=== PATIENT | male | born 1965 | race Caucasian/White ===

== ENCOUNTER 2017-07-12 18:24 | Observation (INO) | END 2017-07-16 14:30 | disposition home or self-care (01) ==

== ENCOUNTER 2018-09-24 09:42 | Emergency (ER) | payer OTHER ==
[~2018-09-24] VITALS: Ht 154.9 cm; Wt 71.5 kg
[~2018-09-24 09:42] MED LIST: ASPI-903 PO; ATOR20TA38 PO; ATOR20TA65 PO; BENA10TA4 PO; CIPR500T4 PO; GLIP10TA14 PO; IBUP-1542 PO; LANT3I SC; LEVO500T48 PO; METF100010 PO; METO-448 PO; METR500T PO; MTF1000T PO; ONDA4TAB14 PO
[2018-09-24 09:45] VITALS: Ht 154.9 cm; Wt 71.5 kg
[2018-09-24] MEDS ORDERED: KETOROLAC 30 MG INJ IV STA (09:52)
[2018-09-24] MEDS ORDERED: SOD CHLORIDE 0.9% 1,000 ML IV STA (09:52)
[2018-09-24] MEDS ORDERED: ONDANSETRON 4 MG INJ IV STA (09:52)
[2018-09-24] MEDS ORDERED: metroNIDAZOLE 500 MG TAB PO ONE (11:00)
[2018-09-24] MEDS ORDERED: CIPROFLOXACIN 500 MG TAB PO ONE (11:00)
--- NOTE | 2018-09-24 11:35 | ERD ---
ER Documentation Chief Complaint Chief Complaint ABD PAIN, NO APPETITE X3 DAYS, SENT PER PMD FOR EVAL, NO N/V HPI Patient is a 53-year-old male with hypertension and diabetes who presents with abdominal pain. The patient has had decreased intake by mouth as well. He has had no vomiting but has had diarrhea. He has had the symptoms for the past 2 days. He tried Advil and Tylenol. He has no fevers. He was sent by his primary doctor Dr. Rodriguez for work-up. Upon review of old medical records patient one previous visit to the ER in June 2017. ROS All systems reviewed and are negative except as per history of present illness. Medications Home Meds Active Scripts Metronidazole* (Flagyl*) 500 Mg Tablet, 500 MG PO TID for 7 Days, TAB Prov:NANCY TONG MD 09/24/18 Ciprofloxacin Hcl* (Ciprofloxacin Hcl*) 500 Mg Tablet, 500 MG PO BID for 7 Days, TAB Prov:NANCY TONG MD 09/24/18 Ondansetron (Ondansetron Odt) 4 Mg Tab.rapdis, 4 MG PO Q6H PRN for NAUSEA AND/OR VOMITING, #10 TAB Prov:NANCY TONG MD 09/24/18 Ibuprofen* (Motrin*) 600 Mg Tab, 600 MG PO Q6H PRN for PAIN AND OR ELEVATED TEMP, #30 TAB Prov:NANCY TONG MD 09/24/18 Reported Medications Aspirin* (Aspirin* Chew) 81 Mg Tab.chew, 81 MG PO DAILY, TAB.CHEW 09/24/18 Metoprolol Tartrate* (Lopressor*) 25 Mg Tab, 25 MG PO BID, #60 TAB 09/24/18 Metformin Hcl* (Metformin Hcl*) 1,000 Mg Tablet, 1000 MG PO BID WITH MEALS, #30 TAB 09/24/18 Insulin Glargine* (Lantus*) 100 Unit/Ml Soln, 20 UNIT SC QHS, #1 VIAL 09/24/18 Glipizide* (Glipizide*) 10 Mg Tablet, 10 MG PO BID, TAB 09/24/18 Benazepril Hcl* (Benazepril Hcl*) 10 Mg Tablet, 10 MG PO DAILY, #30 TAB 09/24/18 Atorvastatin Calcium* (Atorvastatin Calcium*) 20 Mg Tablet, 20 MG PO QHS, #30 TAB 09/24/18 Discontinued Reported Medications Metformin* (Glucophage*) 1,000 Mg Tablet, 1000 MG PO BID, #60 TAB 07/13/17 Glipizide* (Glipizide*) 10 Mg Tablet, 10 MG PO BID, TAB 07/13/17 Discontinued Scripts Levofloxacin* (Levaquin*) 500 Mg Tablet, 500 MG PO DAILY for 7 Days, TAB Prov:KARUNAARINANAUNHILDA 07/16/17 Metoprolol Tartrate* (Lopressor*) 25 Mg Tab, 25 MG PO BID for 30 Days, TAB Prov:ALICIAHILDA 07/16/17 Insulin Glargine* (Lantus*) 100 Unit/Ml Soln, 15 UNIT SC DAILY@20 for 30 Days Prov:KARUNAGERARDHILDA 07/16/17 Benazepril Hcl* (Benazepril Hcl*) 10 Mg Tablet, 10 MG PO BID for 30 Days, TAB Prov:ALICIAHILDA 07/16/17 Atorvastatin Calcium (Atorvastatin Calcium) 20 Mg Tablet, 20 MG PO HS for 30 Days, TAB Prov:ALICIAHILDA 07/16/17 Allergies Allergies: Coded Allergies: No Known Allergy (Unverified , 09/24/18) PMhx/Soc History of Surgery: Yes Anesthesia Reaction: No Hx Neurological Disorder: No Hx Respiratory Disorders: No Hx Cardiac Disorders: No Hx Psychiatric Problems: No Hx Miscellaneous Medical Probl: No Hx Alcohol Use: Yes Hx Substance Use: No Hx Tobacco Use: No Smoking Status: Never smoker FmHx Family History: diabetes Physical Exam Vitals Vital Signs Date Temp Pulse Resp B/P (MAP) Pulse Ox O2 O2 Flow FiO2 Time Delivery Rate 09/24/18 98.2 98 20 119/76 97 Room Air 11:46 (90) 09/24/18 88 14 132/85 99 Room Air 10:30 (101) 09/24/18 98.7 108 16 145/88 98 09:45 (107) Physical Exam Const: No acute distress Head: Atraumatic Eyes: Normal Conjunctiva ENT: Normal External Ears, Nose and Mouth. Neck: Full range of motion. No meningismus. Resp: Clear to auscultation bilaterally Cardio: Regular rate and rhythm, no murmurs Abd: Soft, crampy tenderness to palpation diffusely without rebound or guarding Skin: No petechiae or rashes Back: No midline or flank tenderness Ext: No cyanosis, or edema Neur: Awake and alert Psych: Normal Mood and Affect Result Diagram: 09/24/18 1012 09/24/18 1012 Results 24 hrs Laboratory Tests Test 09/24/18 10:12 White Blood Count 12.5 10^3/ul Red Blood Count 4.97 10^6/ul Hemoglobin 15.1 g/dl Hematocrit 44.2 % Mean Corpuscular Volume 88.9 fl Mean Corpuscular Hemoglobin 30.4 pg Mean Corpuscular Hemoglobin Concent 34.2 g/dl Red Cell Distribution Width 12.0 % Platelet Count 201 10^3/UL Mean Platelet Volume 11.2 fl Immature Granulocytes % 0.600 % Neutrophils % 72.8 % Lymphocytes % 12.9 % Monocytes % 13.2 % Eosinophils % 0.1 % Basophils % 0.4 % Nucleated Red Blood Cells % 0.0 /100WBC Immature Granulocytes # 0.080 10^3/ul Neutrophils # 9.1 10^3/ul Lymphocytes # 1.6 10^3/ul Monocytes # 1.6 10^3/ul Eosinophils # 0.0 10^3/ul Basophils # 0.1 10^3/ul Nucleated Red Blood Cells # 0.0 10^3/ul Urine Color YELLOW Urine Clarity CLEAR Urine pH 6.0 Urine Specific [place] 1.004 Urine Ketones TRACE mg/dL Urine Nitrite NEGATIVE mg/dL Urine Bilirubin NEGATIVE mg/dL Urine Urobilinogen NEGATIVE mg/dL Urine Leukocyte Esterase NEGATIVE [place]/ul Urine Microscopic RBC 0 /HPF Urine Microscopic WBC 0 /HPF Urine Hemoglobin 1+ mg/dL Urine Glucose NEGATIVE mg/dL Urine Total Protein NEGATIVE mg/dl Sodium Level 135 mmol/L Potassium Level 4.2 mmol/L Chloride Level 98 mmol/L Carbon Dioxide Level 27 mmol/L Anion Gap 10 Blood Urea Nitrogen 12 mg/dl Creatinine 0.87 mg/dl Est Glomerular Filtrat Rate mL/min > 60 mL/min Glucose Level 159 mg/dl Calcium Level 9.3 mg/dl Total Bilirubin 0.8 mg/dl Direct Bilirubin 0.00 mg/dl Indirect Bilirubin 0.8 mg/dl Aspartate Amino Transf (AST/SGOT) 24 IU/L Alanine Aminotransferase (ALT/SGPT) 28 IU/L Alkaline Phosphatase 89 IU/L Troponin I < 0.012 ng/ml Total Protein 8.0 g/dl Albumin 4.2 g/dl Globulin 3.80 g/dl Albumin/Globulin Ratio 1.10 Lipase 88 U/L Current Medications Medications Dose Sig/Nelia Start Time Status Last (Trade) Ordered Route PRN Stop Time Admin Dose Reason Admin Ondansetron 4 mg ONCE STAT 09/24/18 DC 09/24/18 HCl (Zofran IV 09:52 10:18 Inj) 09/24/18 09:53 Ketorolac 30 mg ONCE STAT 09/24/18 DC 09/24/18 Tromethamine IV 09:52 10:19 (Toradol) 09/24/18 09:53 Sodium 1,000 ml @ Q1H STAT 09/24/18 DC 09/24/18 Chloride 1,000 mls/hr IV 09:52 10:18 09/24/18 10:51 500 mg ONCE ONCE 09/24/18 DC 09/24/18 Ciprofloxacin PO 11:00 10:44 (Cipro) 09/24/18 11:01 500 mg ONCE ONCE 09/24/18 DC 09/24/18 Metronidazole PO 11:00 10:54 (Flagyl) 09/24/18 11:01 Procedures/MDM EKG read by me: Rate/Rhythm: Regular rate and rhythm at a rate of 84 Intervals: Normal Impression: No evidence of ischemia or arrhythmia CT abdomen pelvis shows colitis and diverticulitis per radiology. Patient is a 53-year-old male presents with 2 days of abdominal pain and diarrhea. He was found to have colitis and diverticulitis on CT scan. White count is slightly elevated. There is no sign of perforation or sepsis at this time. Patient is otherwise well-appearing and I believe outpatient management is appropriate. He will be given a prescription for Cipro and Flagyl for 1 week in the patient was given the first doses in the emergency department. He can take ibuprofen and Zofran for symptomatic relief. I doubt appendicitis, cholecystitis, pancreatitis, or bowel obstruction. He was given copies of laboratory studies and CT scan report prior to discharge. Departure Diagnosis: Primary Impression: Colitis Additional Impressions: Diverticulitis Abdominal pain Abdominal location: generalized Qualified Codes: R10.84 - Generalized abdominal pain Condition: Fair Patient Instructions: Diverticulitis Additional Instructions: Llame al doctor JESENIA y sanjiv maya LUBA PARA DENTRO DE 1-2 NGUYEN.Dgale a la secretaria que nosotros le instruimos hacer esta luba.Avise o llame si browne condicin se empeora antes de la luba. Regresa aqui si peor o no mejor. NANCY TONG MD Sep 24, 2018 11:35
[2018-09-24 11:46] VITALS: BP 119/76; PULSE 98; RESP 20
== END 2018-09-24 11:47 | disposition home or self-care (01) ==
LOC: E/R 09:42
DX: K52.9 Noninfective gastroenteritis and colitis, unspecified (principal); I10 Essential (primary) hypertension; E11.9 Type 2 diabetes mellitus without complications; K57.32 Diverticulitis of large intestine without perforation or abscess without bleeding; Z79.82 Long term (current) use of aspirin; Z79.4 Long term (current) use of insulin
CPT/HCPCS: 36415; 74176; 80053; 81001; 83690; 84484; 85025; 93005; 96374; 96375; J1885; J2405; J7030; Z7502; Z7610